=== PATIENT | female | born 1940 | race Asian ===

== ENCOUNTER → 2017-01-15 | Outpatient (CLI) | payer MEDICARE ==
[~2017-01-15] MED LIST: ASCO10007 PO; ASPI-496 PO; ASPI-621 PO; ATOR10TA PO; BECL8.7A6 INH; BETA1CAP PO; BETA1CAP2 PO; CALC1CAP8 PO; CALCIUM PO; CEPH-368 PO; CHOL200012 PO; CHOL200024 PO; CHOL40002 PO; CO Q-10 PO; ENZY1TAB2 PO; FISH OIL OMEGA1 EACH PO; FISH OIL PO; FLUT1AER INH; GABA300C10 PO; GABAPENTIN PO; GINK60TA PO; HYDR-3240 PO; IBUP400T PO; IBUP800T PO; INHALER INH; METH750T87 PO; METO25TA2 PO; MINERAL PO; MOME13HF2 INH; OMEG1CAP24 PO; TRAM50TA2 PO; UBID30CA9 PO; [UNRECOGNIZED DRUG - OTHER] PO; [UNRECOGNIZED DRUG - OTHER] PO; [UNRECOGNIZED DRUG - OTHER] PO; [UNRECOGNIZED DRUG - REMARK] PO
== END | disposition home or self-care (01) ==
LOC: CARD 15:21
PROVIDERS: ATTEND Internal Medicine Cardiovascular Disease
DX: R06.02 Shortness of breath (principal); E11.9 Type 2 diabetes mellitus without complications; E78.5 Hyperlipidemia, unspecified
CPT/HCPCS: 94060; 94726; 94729

== ENCOUNTER → 2017-02-07 | Outpatient (CLI) | payer MEDICARE ==
[~2017-02-07] MED LIST changes: +ASCO100019 PO; -ASCO10007 PO; -CHOL200012 PO; +CHOL200074 PO; +IBUP-1221 PO; +IBUP-1223 PO; -IBUP400T PO; -IBUP800T PO
== END | disposition home or self-care (01) ==
LOC: CFH 11:06
PROVIDERS: ATTEND Internal Medicine Cardiovascular Disease
DX: I08.3 Combined rheumatic disorders of mitral, aortic and tricuspid valves (principal); Z85.3 Personal history of malignant neoplasm of breast; Z85.118 Personal history of other malignant neoplasm of bronchus and lung; Z92.21 Personal history of antineoplastic chemotherapy; Z92.3 Personal history of irradiation; Z87.891 Personal history of nicotine dependence
CPT/HCPCS: 93306

== ENCOUNTER → 2017-09-05 | Outpatient (CLI) | payer MEDICARE | LOC: CFH 14:31 | PROVIDERS: ATTEND Nurse Practitioner | DX: J70.0 Acute pulmonary manifestations due to radiation (principal); J44.9 Chronic obstructive pulmonary disease, unspecified; Y84.2 Radiological procedure and radiotherapy as the cause of abnormal reaction of the patient, or of later complication, without mention of misadventure at the time of the procedure | CPT/HCPCS: 71250 ==

== ENCOUNTER → 2017-09-19 | Outpatient (CLI) | payer MEDICARE ==
[~2017-09-19] MED LIST changes: +REGADENOSON 0.4 MG/5 ML SYRINGE ONE
== END ==
LOC: RAD 11:32
PROVIDERS: ATTEND Internal Medicine Cardiovascular Disease
DX: I08.3 Combined rheumatic disorders of mitral, aortic and tricuspid valves (principal); Z90.12 Acquired absence of left breast and nipple; Z87.891 Personal history of nicotine dependence; Z85.3 Personal history of malignant neoplasm of breast
CPT/HCPCS: 78452; 93017; 93306; A9502; J2785